=== PATIENT | female | born 1950 | race Caucasian/White ===

== ENCOUNTER 2023-05-12 09:46 | Emergency (ER) | payer MEDICARE, BC ==
[~2023-05-12] VITALS: Ht 147.3 cm; Wt 50.0 kg
[2023-05-12 09:51] VITALS: BP 100/64; PULSE 54; O2SAT 95
[2023-05-12] MEDS ORDERED: ACET10EL PO (11:08)
[2023-05-12 12:00] VITALS: RESP 18
== END 2023-05-12 12:07 | disposition home or self-care (01) ==
LOC: ER 09:46
DX: S42.291A Other displaced fracture of upper end of right humerus, initial encounter for closed fracture (principal); S09.90XA Unspecified injury of head, initial encounter; N18.9 Chronic kidney disease, unspecified; Z88.8 Allergy status to other drugs, medicaments and biological substances; Z88.1 Allergy status to other antibiotic agents; Z79.899 Other long term (current) drug therapy; W01.0XXA Fall on same level from slipping, tripping and stumbling without subsequent striking against object, initial encounter; Y93.89 Activity, other specified; Y92.89 Other specified places as the place of occurrence of the external cause; Y99.8 Other external cause status
CPT/HCPCS: 70450; 73030; 73110; 99284; A4565

== ENCOUNTER 2025-05-08 10:13 | Outpatient (CLI) | payer MEDICARE, BC ==
--- NOTE | 2025-05-08 16:29 | RADIOLOGY REPORT ---
Exam: CT CT ABDOMEN PELVIS History: RIGHT KIDNEY MASS Comparison Study: None Technique: Multidetector spiral CT of the abdomen and pelvis was performed from lung bases to pubic symphysis. Imaging was performed without IV contrast. Axial, coronal and sagittal multiplanar reform ats were obtained from the axial data set by the technologist. Radiation dose : Abdomen/Pelvis: CTDIvol 9 mGy, DLP 433 mGy*cm. Findings: Evaluation of solid organs is limited due to lack of intravenous contrast use. Lung Bases: No acute or significant lung base finding. Normal heart size. No pleural or pericardial effusion. Liver: Multiple hepatic cysts, largest in the right lobe of the liver measures up to 46 mm. Gallbladder and biliary Tree: Sludge in the gallbladder. Spleen: Unremarkable Pancreas: The pancreas is grossly normal in appearance. Adrenal Glands: Unremarkable Kidneys: Left kidney is atrophic. Multiple left renal calculi, largest measuring up to 8 mm. Mild lef t hydronephrosis. No obstructing ureteral calculus identified. Possible right upper pole renal cyst o r lesion. Right lower pole renal calculus measuring up to 5 mm. No right hydronephrosis. Bladder: Grossly unremarkable for degree of distention. Bowel: The stomach is grossly normal in appearance. Small bowel and colon are normal in caliber and d istribution. Normal appendix is visualized in the right lower quadrant without findings of appendicit is. Colonic diverticulosis. Ascites: Absent Lymphadenopathy: Low-density structures adjacent to the aorta at the level of the hiatus measuring up to 19 mm could represent abnormal lymph nodes or lymphatic lesions. Low-density structure in the reg ion of the root of the mesentery measuring up to 23 mm could be an abnormal lymph node or a vascular lesion. Abdominal wall and Mesentery: Unremarkable. Vasculature: Calcified atherosclerotic disease. Pelvic Organs: Unremarkable Musculoskeletal: Compression deformity of L1 and L3 appears chronic. Multilevel degenerative disease . Osteopenia. IMPRESSION: 1. Limited exam without intravenous contrast. Possible right upper pole renal cyst or lesion. Recomme nd further evaluation with MRI of the abdomen with and without contrast. If patient is unable to get contrast a noncontrast exam could be performed. 2. Bilateral renal calculi. Mild left hydronephrosis. No obstructing ureteral calculus identified. 3. Multiple hepatic cysts. Sludge in the gallbladder. Colonic diverticulosis. Calcified atherosclero tic disease. Compression fractures L1 and L3 appear chronic. 4. Low-density structures adjacent to the aorta at the hiatus be lymph nodes or lymphatic lesions. Lo w-density structure at the root of the mesentery could be a lymph node or vascular lesion. These cou ld be further evaluated on MRI of the abdomen with contrast. Radiation optimization: All CT scans at this facility use at least one of these dose optimization juan ramon hniques: Automated exposure control mA and/or kV adjustment per patient size (includes targeted exams where dose is matched to clinical indication) or iterative reconstruction. HS:Y
== END 2025-05-08 23:59 | disposition home or self-care (01) ==
LOC: RAD 10:13
PROVIDERS: ATTEND Family Medicine
DX: S32.020A Wedge compression fracture of second lumbar vertebra, initial encounter for closed fracture (principal); S32.030A Wedge compression fracture of third lumbar vertebra, initial encounter for closed fracture; N13.2 Hydronephrosis with renal and ureteral calculous obstruction; D30.01 Benign neoplasm of right kidney; K76.89 Other specified diseases of liver; K57.30 Diverticulosis of large intestine without perforation or abscess without bleeding; M85.88 Other specified disorders of bone density and structure, other site; X58.XXXA Exposure to other specified factors, initial encounter; Y93.89 Activity, other specified; Y92.89 Other specified places as the place of occurrence of the external cause; Y99.8 Other external cause status
CPT/HCPCS: 74176